=== PATIENT | female | born 1940 ===

== ENCOUNTER 2021-09-07 11:35 | Outpatient (CLI) | payer OTHER | END 2021-09-07 11:38 | disposition home or self-care (01) | LOC: NUCLEAR 11:35 | PROVIDERS: ATTEND Internal Medicine | DX: M19.031 Primary osteoarthritis, right wrist (principal); M16.12 Unilateral primary osteoarthritis, left hip; M79.7 Fibromyalgia; E55.9 Vitamin D deficiency, unspecified; E78.9 Disorder of lipoprotein metabolism, unspecified; I10 Essential (primary) hypertension; R00.2 Palpitations ==